=== PATIENT | female | born 1945 | race Caucasian/White ===

== ENCOUNTER 2020-07-30 05:20 | Day surgery (SDC) | payer MEDICARE ==
[2020-07-30] MEDS: Dextrose 5%-Lactated Ringers 1,000 ML IV SCH ×3 (06:00→21:27)
[2020-07-30] MEDS ORDERED: Acetaminophen 500 MG Tab PO ONE (06:00)
[2020-07-30] MEDS ORDERED: Bupivacaine 0.5%/EPINEPHrine 1:200,000 50 ML MDV ONE (06:38)
[2020-07-30] MEDS ORDERED: Glycopyrrolate 0.2 MG/ML 5 ML MDV ONE (07:13)
[2020-07-30] MEDS ORDERED: Ondansetron 4 MG/2 ML SDV ONE (07:13)
[2020-07-30] MEDS ORDERED: Rocuronium 50 MG/5 ML Vial ONE (07:13)
[2020-07-30] MEDS ORDERED: Neostigmine Methylsulfate 1 MG/ML 5 ML Syringe ONE (07:13)
[2020-07-30] MEDS ORDERED: Dexamethasone 4 MG/ML SDV ONE (07:13)
[2020-07-30] MEDS ORDERED: Propofol 200 MG/20 ML SDV ONE (07:13)
[2020-07-30] MEDS ORDERED: fentaNYL 250 MCG/5 ML SDV ONE (07:13)
[2020-07-30] MEDS ORDERED: cefOXitin 2 GM in Sodium Chloride 0.9% 50 ML IV ONE (07:15)
[2020-07-30] MEDS ORDERED: Ropivacaine 40 ML, dexAMETHasone 8 MG, EPINEPHrine 0.4 MG, Sodium Chloride 0.9% 37.6 ML NERVRT SCH ×4 (07:30)
[2020-07-30] MEDS ORDERED: fentaNYL 100 MCG/2 ML SDV ONE (07:45)
[2020-07-30] MEDS ORDERED: Nitroglycerin 0.4 MG Tab.SL SL PRN (09:23)
[2020-07-30] MEDS ORDERED: Ondansetron 4 MG/2 ML SDV IVPUSH PRN (10:00)
[2020-07-30] MEDS ORDERED: Acetaminophen/HYDROcodone 325-5 MG Tab PO PRN (10:00)
[2020-07-30] MEDS ORDERED: HYDROmorphone 0.5 MG/0.5 ML Syringe IVPUSH PRN (10:00)
[2020-07-30] MEDS ORDERED: HYDROmorphone 1 MG/ML Syringe IV PRN (10:00)
[2020-07-30] MEDS ORDERED: Acetaminophen 325 MG Tab PO PRN (10:49)
[2020-07-30] MEDS ORDERED: Magnesium Hydroxide 400 MG/5 ML Susp 30 ML Cup PO PRN (10:49)
[2020-07-30] MEDS: cefOXitin 2 GM in Sodium Chloride 0.9% 50 ML IV SCH ×2 (13:56→19:53)
[2020-07-30] MEDS ORDERED: Pantoprazole 40 MG Vial IVPUSH SCH (14:00)
[2020-07-31] MEDS: cefOXitin 2 GM in Sodium Chloride 0.9% 50 ML IV SCH ×2 (02:56→07:36)
[2020-07-31 08:35] VITALS: BP 140/72; PULSE 80
[2020-07-31] MEDS ORDERED: Pseudoephedrine 30 MG Tab PO SCH (09:00)
[2020-07-31] MEDS ORDERED: amLODIPine 5 MG Tab PO SCH (09:00)
[2020-07-31] MEDS ORDERED: Polyethylene Glycol 3350 Powder 17 GM Packet PO SCH (09:00)
[2020-07-31] MEDS ORDERED: Loratadine 10 MG Tab PO SCH ×2 (09:00)
--- NOTE | 2020-08-01 04:13 | DISCH ---
ADMISSION DIAGNOSES: 1. Chronic cholecystitis. 2. Cholelithiasis. 3. Incarcerated periumbilical hernia. DISCHARGE DIAGNOSES: Diagnostic laparoscopy with: 1. Cholecystectomy. 2. Repair of incarcerated periumbilical incisional hernia. Date of procedure 07/30/2020. Surgeon: Luis Beach MD. HISTORY: April Rooney is a pleasant 75-year-old female with symptomatic gallbladder disease and incisional hernias. After preoperative evaluation and discussion of possible risks and possible complications, she wished to proceed with surgical procedure. HOSPITAL COURSE: April had her surgery on 07/30/2020. She was able to be discharged to home on 07/31/2020. Vital signs were stable. Pain was well managed with Tylenol. Oral intake and output adequate. PHYSICAL EXAMINATION: GENERAL: April Rooney is a 75-year-old female. VITAL SIGNS: Height is 5 feet 4 inches, weight is 161 pounds. BMI is 27. TPR 97.1, 80, 16, blood pressure 140/72. HEENT: Negative. NECK: Supple. HEART: Regular rate and rhythm. LUNGS: Clear. ABDOMEN: Dressings dry and intact. Abdominal binder is on. EXTREMITIES: Without peripheral edema. DISPOSITION: Discharged to home. CONDITION: Stable and improving. FOLLOWUP APPOINTMENT: With Le Fontenot PA-C, on 08/07/2020 at 9 a.m. MEDICATIONS: She is to resume her home medications. Amlodipine 5 mg daily, vitamin B complex 1 tablet daily, nitroglycerin 0.4 mg sublingual p.r.n. chest pain, Ocuvite lutein 1 capsule daily, loratadine-D 12 hours 1 daily, probiotic 1 daily, vitamin C 1000 mg b.i.d., and Tylenol 650 mg p.o. q.4 hours p.r.n. pain. DIET: Usual diet as tolerated. Drink 8 to 10 glasses of water a day. ACTIVITY: No lifting greater than 10 pounds for 2 weeks. Driving: Do not drive for 1 week. Shower/bathing: May shower. Keep operative site clean and dry. Wear abdominal binder for 2 weeks if tolerated, and notify provider if any fever, increased pain, swelling, redness, drainage, nausea, vomiting. SPECIAL INSTRUCTION: Use incentive spirometer 10 times every hour while awake for 1 week. /[id number]
--- NOTE | 2020-08-03 14:07 | OR ---
DATE OF PROCEDURE: 07/30/2020 SURGEON: Luis Beach MD PREOPERATIVE DIAGNOSIS: Chronic cholecystitis and cholelithiasis. POSTOPERATIVE DIAGNOSES: 1. Chronic cholecystitis and cholelithiasis. 2. Incarcerated periumbilical trocar site hernia. OPERATIVE PROCEDURE: Diagnostic laparoscopy with: 1. Cholecystectomy (69830). 2. Repair of incarcerated periumbilical trocar site hernia (16279). ANESTHESIA: General. ASSEMBLER TUBING: Le Fontenot PA-C. INDICATIONS FOR PROCEDURE: This is a 75-year-old presenting with some recurrent episodes of right upper quadrant pain. Ultrasound showed cholelithiasis. At this point, based on clinical criteria, the patient would appear to be having some biliary colic related to the stones. Plan is to proceed with a laparoscopic or, if necessary, open cholecystectomy. Potential risks of the procedure including bleeding, infection, injury to the common bile duct or other adjacent viscera, possible migration of stones from the common bile duct during the procedure requiring additional procedures for correction, as well as possibility of persistent symptoms postoperatively were gone over, and the patient wishes to proceed. DETAILS OF PROCEDURE: The patient was taken to the operating room and placed in a supine position. After general endotracheal anesthesia was induced, the abdomen was prepped and draped. A transverse subumbilical incision was made. The patient had a previous incision in this area and was noted to have an incarcerated hernia in that location which was located just slightly below the actual umbilical fascial site, so it would be considered an incisional hernia related to the previous trocar site. The 12 mm trocar was then brought through the herniated site into the peritoneal cavity, displacing the incarcerated preperitoneal fat back into the peritoneal cavity. The peritoneal cavity was inflated to 15 mmHg pressure with CO2 and the laparoscope reinserted. No underlying trocar insertion site injuries were seen. Following this, a 12 mm epigastric trocar was placed along with a 5 mm right abdominal trocar and the abdomen examined. The patient was noted have thick-walled, somewhat sanders-appearing gallbladder consistent with chronic cholecystitis. This appeared to have a stone impacted in the gallbladder neck. As the gallbladder was retracted anterolaterally, dissection began around the gallbladder neck and cystic duct junction. Once that area was well delineated along with the adjacent cystic artery, both structures were felt best treated by means of a surgical staple which was accomplished with a KD everett load such that a small remaining bridge of tissue at the back of the divided end of the cystic duct which was clipped as well and the gallbladder was then dissected off the gallbladder bed using Harmonic scalpel and delivered through the epigastric trocar site. It contained multiple small stones, but one quite large stone that was over 1 cm in size which was given to the patient. The area of dissection was inspected. No bleeding or bile leaks were seen. A drain was felt not to be necessary. The camera port was then brought back up to the epigastric site, and the incisional hernia was then closed with placement of a laparoscopic suture passer, placed 0 Vicryl sutures, thus closing the entire hernia with a transverse orientation. Upon completion of those suture being placed in the epigastric region, the trocars were removed and the peritoneal cavity deflated. The fascia at the epigastric site was closed with 0 Vicryl stitch and the skin at each incision with 4-0 Vicryl skin stitch. Prior to closure, bilateral transversus abdominis plane blocks had been placed and the incisions were anesthetized with 1% lidocaine mixed with Marcaine. The patient was taken to the recovery room in satisfactory condition. Physician cancer genetics assistant, Le Fontenot, played an essential role in assisting in this case, helping to position the patient, retract structures as needed, as well as suturing and cutting sutures when indicated. Her presence improved patient safety and decreased the operative time. Luis Beach MD /[id number]
== END 2020-07-31 10:25 | disposition home or self-care (01) ==
LOC: JP.SDS 05:20 → JP.MS 08:30 → JP.SDS 07-31 10:25
PROVIDERS: ATTEND Surgery
DX: K80.10 Calculus of gallbladder with chronic cholecystitis without obstruction (principal); K42.0 Umbilical hernia with obstruction, without gangrene; I10 Essential (primary) hypertension; Z79.899 Other long term (current) drug therapy; Z88.0 Allergy status to penicillin; Z88.1 Allergy status to other antibiotic agents; Z88.5 Allergy status to narcotic agent; Z88.8 Allergy status to other drugs, medicaments and biological substances
CPT/HCPCS: 36415; 47562; 82247; 84075; 85025; 88304; A9270; C9113; J0171; J0694; J1100; J2405; J2704; J2710; J2795; J3010; J3490; J7121

== ENCOUNTER 2021-02-08 05:56 | Inpatient (IN) | payer MEDICARE ==
[2021-02-08] MEDS ORDERED: Acetaminophen 500 MG Tab PO ONE (06:15)
[2021-02-08] MEDS ORDERED: Rocuronium 50 MG/5 ML Vial ONE (06:59)
[2021-02-08] MEDS ORDERED: Propofol 200 MG/20 ML SDV ONE (06:59)
[2021-02-08] MEDS ORDERED: Dexamethasone 4 MG/ML SDV ONE (06:59)
[2021-02-08] MEDS ORDERED: Neostigmine Methylsulfate 1 MG/ML 5 ML Syringe ONE (06:59)
[2021-02-08] MEDS ORDERED: fentaNYL 250 MCG/5 ML SDV ONE (06:59)
[2021-02-08] MEDS ORDERED: Ondansetron 4 MG/2 ML SDV ONE (06:59)
[2021-02-08] MEDS ORDERED: Glycopyrrolate 0.2 MG/ML 5 ML MDV ONE (06:59)
[2021-02-08] MEDS ORDERED: ceFAZolin 2 GM in Premix Bag 1 BAG IV ONE (07:00)
[2021-02-08] MEDS: Dextrose 5%-Lactated Ringers 1,000 ML IV SCH ×3 (07:12→23:54)
[2021-02-08] MEDS ORDERED: Naloxone 0.4 MG/ML SDV IVPUSH PRN (07:48)
[2021-02-08] MEDS ORDERED: HYDROmorphone/Normal Saline 15 MG/30 ML PCA IV PRN (07:48)
[2021-02-08] MEDS ORDERED: Midazolam 1 MG/ML 2 ML SDV ONE ×2 (08:08→10:19)
[2021-02-08] MEDS ORDERED: Ketorolac 30 MG/ML SDV ONE (09:29)
[2021-02-08] MEDS ORDERED: Lactated Ringers 1,000 ML ONE (09:50)
[2021-02-08] MEDS ORDERED: Tranexamic Acid 750 MG in Sodium Chloride 0.9% 50 ML IV ONE ×2 (10:15→13:30)
[2021-02-08] MEDS ORDERED: Ondansetron 4 MG/2 ML SDV IVPUSH PRN (12:23)
[2021-02-08] MEDS: Acetaminophen 500 MG Tab PO SCH ×3 (13:20→23:58)
[2021-02-08] MEDS: ceFAZolin 1 GM in Premix Bag 1 BAG IV SCH ×2 (17:08→23:53)
[2021-02-08] MEDS: amLODIPine 5 MG Tab PO SCH (17:10)
[2021-02-08] MEDS: Calcium Carbonate/Vitamin D3 1500 MG-400 Units Tab PO SCH (17:12)
[2021-02-08] MEDS: Cholecalciferol (Vitamin D3) 25 MCG Tab PO SCH (20:21)
[2021-02-09] MEDS: Acetaminophen 500 MG Tab PO SCH ×3 (06:11→19:10)
[2021-02-09] MEDS ORDERED: ceFAZolin 2 GM in Sodium Chloride 0.9% 50 ML IV ONE (07:00)
[2021-02-09] MEDS: ceFAZolin 1 GM in Premix Bag 1 BAG IV SCH (07:23)
--- NOTE | 2021-02-09 08:36 | PN ---
DATE OF SERVICE: 02/09/2021 SUBJECTIVE: April is postop day #1. She reports that she is having no pain. She is up, sitting in a chair. Vital signs have been stable. REVIEW OF SYSTEMS: Remainder of review of systems negative for any pertinent positives and negatives. OBJECTIVE: GENERAL: April Rooney is a pleasant 75-year-old female. She is alert and orientated. VITAL SIGNS: TPR is 97, 93, 16, blood pressure 121/60. HEENT: Negative. NECK: Dressing was taken down around neck. Steri-Strips anterior neck are intact. There is a little bit of swelling above the thyroidectomy incision, but no hematoma. KASIA drain is intact and has drained just drops for the past 12 hours. HEART: Regular rate and rhythm. LUNGS: Clear. ABDOMEN: Nondistended. EXTREMITIES: Without peripheral edema. ASSESSMENT: Left thyroid lobectomy with subtotal right lobectomy. POSTOPERATIVE DIAGNOSIS: Left substernal with suspicious nodules x2, nodular hyperplasia, frozen section. Date of procedure: 02/08/2021. Surgeon: Luis Beach MD. PLAN: 1. Saline lock IV. 2. Regular diet. 3. Dressing was taken down and no hematoma noted. 4. Continue same orders. 5. We will evaluate p.r.n. or in a.m. Le Fontenot PA-C /[id number]
[2021-02-09] MEDS ORDERED: Vitamin B Complex Tab PO SCH (09:00)
[2021-02-09] MEDS ORDERED: Ascorbic Acid 500 MG Tab PO SCH (09:00)
[2021-02-09] MEDS ORDERED: Lactobacillus Rhamnosus GG (Probiotic) Cap PO SCH (09:00)
[2021-02-09] MEDS ORDERED: Cholecalciferol (Vitamin D3) 25 MCG Tab PO SCH (09:00)
[2021-02-09] MEDS ORDERED: Multivitamins with Iron/Calcium/Folic Acid/Minerals Tab PO SCH (09:00)
[2021-02-09] MEDS: amLODIPine 5 MG Tab PO SCH (17:15)
[2021-02-09] MEDS: Calcium Carbonate/Vitamin D3 1500 MG-400 Units Tab PO SCH (17:15)
[2021-02-09] MEDS: Cholecalciferol (Vitamin D3) 25 MCG Tab PO SCH (20:59)
[2021-02-10] MEDS: Acetaminophen 500 MG Tab PO SCH ×2 (00:56→05:57)
[2021-02-10 07:15] VITALS: BP 158/87; PULSE 86
--- NOTE | 2021-02-10 11:00 | DISCH ---
ADMISSION DIAGNOSIS: Left thyroid enlargement. DISCHARGE DIAGNOSIS: Left thyroid lobectomy with subtotal lobectomy under frozen section. POSTOPERATIVE DIAGNOSES: Left substernal with suspicious nodules x2. Nodular hyperplasia frozen section. Date of procedure: 02/08/2021. Surgeon: Luis Beach MD. HISTORY: April Rooney had an enlarged left-sided thyroid. After preoperative evaluation and discussion of possible risks and possible complications, she wished to proceed with surgical procedure. HOSPITAL COURSE: April had her surgery on 02/08/2021. She had no operative complications. On postoperative day #1, IV was saline locked. Her dressing was taken down and no hematoma. On postoperative day #2, she was able to be discharged to home. PHYSICAL EXAMINATION: GENERAL: April Rooney is a 75-year-old female. VITAL SIGNS: Height is 5 feet 3 inches, weight is 158 pounds. TPR 97.5, 86, 16, blood pressure 158/87. NECK: Reveals a healing thyroidectomy incision. Steri-Strips in place. Voice is a little bit more hoarse today. She states it comes and goes. HEENT: Eyes negative. HEART: Regular rate and rhythm. LUNGS: Clear. ABDOMEN: Soft, nontender. EXTREMITIES: Without peripheral edema. DISPOSITION: Discharged to home. CONDITION: Stable and improving. FOLLOWUP APPOINTMENT: Le Fontenot PA-C, on 02/16/2021 at 9:15 a.m. HOME MEDICATION: Levothyroxine/Synthroid 100 mcg p.o. before breakfast, #90. She is to resume her home medications, to take Tylenol 500 mg every 6 hours; Norvasc 5 mg p.o. at bedtime; vitamin C 1000 mg p.o. every morning; vitamin D3 50 mcg in a.m. and 25 mcg p.o. at bedtime; Culturelle 1 capsule daily; multivitamin 1 tablet daily; vitamin B complex; nitroglycerin 0.4 sublingual p.r.n.; Ocuvite 1 capsule daily; Claritin 10 mg p.o. daily p.r.n. DIET: Regular diet as tolerated. Drink 8 to 10 glasses of water a day. ACTIVITY: As tolerated. No lifting greater than 10 pounds for 6 weeks. Driving: Do not drive for 1 week. May shower. Keep operative site clean and dry. Leave on Steri-Strips. Empty KASIA drain twice a day and measure the amount of drainage. Notify provider if any fever, increased pain, swelling, drainage, nausea, or vomiting. /[id number]
--- NOTE | 2021-02-11 07:12 | OR ---
DATE OF PROCEDURE: 02/08/2021 SURGEON: Luis Beach MD PREOPERATIVE DIAGNOSIS: Large left-sided goiter with associated esophageal and tracheal deviation. 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 PROCEDURE PERFORMED: Thyroid exploration with left thyroid lobectomy including excision of substernal goiter with associated subtotal right thyroid lobectomy (67452). ANESTHESIA: General. INDICATIONS: This is a 75-year-old female presenting with worsening pressure symptoms associated with a large nodular goiter. Fine-needle aspirations done on the 2 nodules within this goiter were nondiagnostic. Based on the pressure symptoms, the patient is to undergo a left thyroid lobectomy, and if a malignancy is identified or other indications present, a total thyroidectomy could be completed. Potential risks of the procedure including bleeding, infection, injury to the recurrent laryngeal nerves or parathyroid glands were all reviewed with the patient, and she wishes to proceed. DETAILS OF PROCEDURE: The patient was taken to the operating room and placed in a supine position with a roll underneath her shoulders. After general endotracheal anesthesia was induced, the upper chest and neck areas were prepped and draped. A standard collar incision 2 fingerbreadths above the sternal notch was then made and carried down through the skin, subcutaneous tissue, and through the platysma layers. Subplatysmal flaps were then raised superiorly and inferiorly and the midline fascia then divided. Initially, the dissection began on the left side. This eventually revealed a very large nodule with extension into the substernal area down more or less to the innominate artery which was palpable, i.e., around 3 to 4 cm substernal extension was noted of the inferior thyroid, and middle thyroid veins were initially divided which allowed medial mobilization of the thyroid lobe and mobilization of the substernal component up away from the substernal location. The inferior thyroid artery branches were then divided flush with the thyroid lobe, allowing reflection of the parathyroid gland away from the thyroid mass itself. The upper pole vessels were then taken with Harmonic scalpel, and at that point, the attachments to the ligament of Villa and trachea were divided with Harmonic scalpel as well. The patient was noted to have some thickening of the anterior aspect of the right thyroid lobe, and this was excised using the Harmonic scalpel after the isthmus was mobilized and the thyroid tissue divided, leaving the posterior capsule on the right side. The specimen was delivered, and frozen section showed the nodules showing nodular hyperplasia. The wound was intermittently irrigated throughout the procedure with Zyvox-containing saline solution. There was quite a bit of edema present in the area of dissection on the left side, so a 10-[place] round Gómez-Garces drain was then placed through a stab wound lateral to the incision on the left side and placed into the area that had been occupied by the substernal goiter. The strap muscles were then approximated in the midline with a 3-0 Vicryl stitch. The incision then closed with additional 4-0 Vicryl stitch deep at the muscular layer and a 5-0 Vicryl subcuticular stitch. Dressing was applied, and the patient tolerated the procedure well. She was taken to the recovery room in satisfactory condition. Luis Beach MD /[id number]
== END 2021-02-10 09:35 | disposition home or self-care (01) | DRG 627 ==
LOC: JP.SDS 05:56 → JP.MS 11:40 → JP.SDS 02-09 09:08 → JP.MS 02-09 09:09
PROVIDERS: ADMIT Surgery; ATTEND Surgery
PROC: 0GBG0ZZ Excision of Left Thyroid Gland Lobe, Open Approach (ICD-10-PCS; principal; 2021-02-08)
PROC: 0HB4XZZ Excision of Neck Skin, External Approach (ICD-10-PCS; 2021-02-08)
DX: E04.2 Nontoxic multinodular goiter (principal); M81.0 Age-related osteoporosis without current pathological fracture; E78.5 Hyperlipidemia, unspecified; Z88.0 Allergy status to penicillin; Z90.710 Acquired absence of both cervix and uterus; Z88.1 Allergy status to other antibiotic agents
CPT/HCPCS: 94762; A9270-GY; J0690; J1100; J1170; J1790; J1885; J2020; J2250; J2405; J2704; J2710; J3010; J3490; J7120; J7121

== ENCOUNTER → 2022-02-08 | Day surgery (SDC) | payer MEDICARE ==
[~2022-02-08] MED LIST: Midazolam 1 MG/ML 2 ML SDV ONE; Propofol 200 MG/20 ML SDV ONE; fentaNYL 100 MCG/2 ML SDV ONE
== END ==
LOC: JP.SDS 06:00
PROVIDERS: ATTEND Family Medicine
DX: Z12.11 Encounter for screening for malignant neoplasm of colon (principal)
CPT/HCPCS: G0121; J2704; J3010; J2250